=== PATIENT | female | born 1975 | race Caucasian/White ===

== ENCOUNTER 2018-12-27 06:07 | Day surgery (SDC) | payer MEDICAID ==
[2018-12-24 14:08] LABS: BASOPHILS % (AUTO) 0.4 % (0-1); EOSINOPHILS # (AUTO) 0.1 X10'3 (0-0.9); EOSINOPHILS % (AUTO) 1.4 % (0-6); HEMATOCRIT 41.6 % (35.0-45.0); HEMOGLOBIN 14.2 g/dl (12.0-16.0); LYMPHOCYTES # (AUTO) 1.6 X10'3 (1.1-4.8); LYMPHOCYTES % (AUTO) 23.4 % (21-51); MEAN CORPUSCULAR HGB CONC 34.2 g/dL (33.0-36.5); MEAN CORPUSCULAR VOLUME 84.9 FL (78-98); MONOCYTES # (AUTO) 0.4 X10'3 (0-0.9); MONOCYTES % (AUTO) 6.3 % (2-12); NEUTROPHILS # (AUTO) 4.7 X10'3 (1.8-7.7); NEUTROPHILS % (AUTO) 68.5 % (42-75); PLATELET COUNT 305 X10'3 (140-440); RED CELL DISTRIBUTION WIDTH 12.6 % (11.5-14.5); WHITE BLOOD COUNT 6.8 X10'3 (4.5-11.0)
[2018-12-24 14:20] LABS: ALANINE AMINOTRANSFERASE 30 U/L (12-78); ALBUMIN 3.6 G/DL (3.4-5.0); ALBUMIN/GLOBULIN RATIO 0.9 (1.1-1.5); ALKALINE PHOSPHATASE 47 IU/L (46-116); ANION GAP 6 (8-16); ASPARTATE AMINO TRANSFERASE 19 U/L (10-37); BILIRUBIN,TOTAL 0.3 MG/DL (0.1-1.0); BLOOD UREA NITROGEN 10 MG/DL (7-18); BUN/CREATININE RATIO 14.3 (6.6-38.0); CALCIUM 8.7 MG/DL (8.5-10.1); CHLORIDE 106 MMOL/L (99-107); GLUCOSE 98 MG/DL (70-104); POTASSIUM 4.1 MMOL/L (3.5-5.1); SODIUM 138 MMOL/L (135-145); TOTAL CARBON DIOXIDE 25.9 MMOL/L (24-32); TOTAL PROTEIN 7.4 G/DL (6.4-8.2); eGFR > 90 ML/MIN
[2018-12-24 15:13] LABS: HCG SERUM QL NEGATIVE
[~2018-12-27] VITALS: Ht 170.2 cm; Wt 97.4 kg
[~2018-12-27 06:07] MED LIST: NO HOME MEDS; ceFAZolin 2gm in dextrose, iso 100 ML IV ONE; famotidine 20mg tablet PO ONE; ringers solution, lacted 1,000 ML IV SCH
[2018-12-27] MEDS ORDERED: LIDOcaine 0.5% (5mg/ml) 50ml vial ONE (07:05)
[2018-12-27] MEDS ORDERED: ringers solution, lacted 1,000 ML IV SCH (07:09)
[2018-12-27] MEDS ORDERED: labetalol 20mg/4ml (5mg/ml) syringe IV PRN (07:10)
[2018-12-27] MEDS ORDERED: hydrALAZINE 20mg/ml inj. IV PRN (07:10)
[2018-12-27] MEDS ORDERED: fentaNYL/PF 50MCG/1 ML 2ML syringe IV PRN ×2 (07:10)
[2018-12-27] MEDS ORDERED: morphine 4 MG/ML inj SYRINge IV PRN ×2 (07:10)
[2018-12-27] MEDS ORDERED: ondansetron/PF 4mg/2ml inj IV PRN (07:10)
[2018-12-27] MEDS ORDERED: LIDOcaine 1% (10mg/ml) 2ml vial ONE (07:13)
[2018-12-27] MEDS ORDERED: BUPIVAcaine/PF 2.5mg/ml (0.25%) 10ml vial IJ ONE (07:44)
[2018-12-27] MEDS ORDERED: MIDAZolam 1mg/ml 10ml vial ONE (08:28)
[2018-12-27] MEDS ORDERED: fentaNYL/PF 50MCG/1 ML 2ML syringe ONE (08:28)
[2018-12-27] MEDS ORDERED: BUPIVAcaine/PF 2.5mg/ml (0.25%) 10ml vial ONE (08:33)
[2018-12-27] MEDS ORDERED: propofol inj 20 ML IV ONE (09:03)
[2018-12-27] MEDS ORDERED: LIDOcaine 2% (20mg/ml) 5ml vial ONE (09:03)
[2018-12-27 09:13] VITALS: BP 136/72
[2018-12-27 09:14] VITALS: BP 115/77
--- NOTE | 2018-12-27 09:14 | NUR ---
Received from OR via MUNIR , accompanied by Anesthesiologist CLARKE and report given by Anesthesiolgist. PATIENT WITH 20G PIV IN RIGHT UE RUNNING LR AT 100. DENIES PAIN. LEFT WRIST DRESSING IS CDI.+ CSM. Addendum: 12/27/18 at 0924 by Kin Tran RN, RN Amended: Links added.
[2018-12-27 09:15] VITALS: BP 136/72
[2018-12-27 09:24] VITALS: BP 127/72
[2018-12-27 09:34] VITALS: BP 115/76
[2018-12-27 09:44] VITALS: BP 117/78
--- NOTE | 2018-12-27 09:59 | NUR ---
ALL DC CRITERIA HAS BEEN MET. IV TAKEN OUT WITHOUT COMPLICATIONS. ALL INSTRUCTIONS COVERED AND ALL QUESTIONS ANSWERED. DRESSINGS CDI. OUT VIA WHEELCHAIR TO PERSONAL VEHICLE WHERE PATIENT WAS SECURED IN AND DRIVEN HOME BY FAMILY. ICE, DC INSTRUCTIONS AND ALL QUESTIONS ANSWERED. OUT WITH VOLUNTEER TO VEHICLE. Addendum: 12/27/18 at 1000 by Kin Tran RN, RN Amended: Links added.
== END 2018-12-27 09:54 | disposition home or self-care (01) ==
LOC: PAS 06:07
PROVIDERS: ATTEND Orthopaedic Surgery Hand Surgery
DX: G56.03 Carpal tunnel syndrome, bilateral upper limbs (principal); M65.332 Trigger finger, left middle finger; M65.342 Trigger finger, left ring finger; F41.9 Anxiety disorder, unspecified; J45.909 Unspecified asthma, uncomplicated; F12.90 Cannabis use, unspecified, uncomplicated; Z72.89 Other problems related to lifestyle; Z90.49 Acquired absence of other specified parts of digestive tract; Z79.899 Other long term (current) drug therapy; Z98.890 Other specified postprocedural states; Z87.891 Personal history of nicotine dependence
CPT/HCPCS: 26055; 29848; 36415; 80053; 82948; 84703; 85025; A6449; J0690; J2001; J2250; J2704; J3010; J3490; J7120

== ENCOUNTER 2020-04-02 07:42 | Day surgery (SDC) | payer MEDICAID ==
[2020-03-29 16:09] LABS: ALBUMIN 3.6 G/DL (3.4-5.0); ALKALINE PHOSPHATASE 47 IU/L (46-116); BLOOD UREA NITROGEN 9 MG/DL (7-18); CALCIUM 8.8 MG/DL (8.5-10.1); CHLORIDE 108 MMOL/L (99-107); PRE OP ALT 36 U/L (30-65); PRE OP ANION GAP 9 (8-16); PRE OP AST 22 U/L (10-37); PRE OP BILIRUB, TOTAL 0.3 MG/DL (0.0-1.0); PRE OP GLUCOSE 87 MG/DL (70-104); PRE OP POTASSIUM 4.1 MMOL/L (3.4-5.1); PRE OP SODIUM 143 MMOL/L (135-145); TOTAL CARBON DIOXIDE 25.7 MMOL/L (24-32); TOTAL PROTEIN 7.2 G/DL (6.4-8.2); eGFR 68 ML/MIN
[2020-03-29 16:18] LABS: BASOPHILS % (AUTO) 0.5 % (0-1); EOSINOPHILS % (AUTO) 0.5 % (0-6); LYMPHOCYTES # (AUTO) 2.1 X10'3 (1.1-4.8); LYMPHOCYTES % (AUTO) 31.4 % (21-51); MEAN CORPUSCULAR HEMOGLOBIN 29.4 PG (27.0-31.0); MEAN CORPUSCULAR HGB CONC 33.5 g/dL (33.0-36.5); MEAN CORPUSCULAR VOLUME 87.7 FL (78-98); MEAN PLATELET VOLUME 8.2 FL (7.4-10.4); MONOCYTES # (AUTO) 0.6 X10'3 (0-0.9); MONOCYTES % (AUTO) 9.6 % (2-12); NEUTROPHILS # (AUTO) 3.9 X10'3 (1.8-7.7); PRE OP HEMATOCRIT 40.2 % (35.0-45.0); PRE OP HEMOGLOBIN 13.5 g/dL (12.0-16.0); PRE OP PLATELET COUNT 285 X10'3 (140-440); RED BLOOD COUNT 4.58 X10'6 (4.20-5.60); RED CELL DISTRIBUTION WIDTH 13.1 % (11.5-14.5)
[~2020-04-02] VITALS: Ht 170.2 cm; Wt 95.3 kg
[2020-04-02] VITALS (10 sets, daily range): BP systolic 109–119; BP diastolic 63–74
[~2020-04-02 07:42] MED LIST changes: +BUPIVAcaine/PF 2.5 mg/ml (0.25%) 30ml vial ONE; +LIDOcaine 1% 30ml preserv. free vial ONE; +albuterol 2.5 MG/3 ML nebule NEB ONE; -ceFAZolin 2gm in dextrose, iso 100 ML IV ONE; +cefazolin/dext.iso 2gm/50ml 50 ML IV ONE; +meperidine/PF 25mg/ml syringe IV PRN; +morphine 2 MG/ML inj. syringe IV PRN; +morphine 4 MG/ML inj SYRINge IV PRN; +ondansetron/PF 4mg/2ml inj IV PRN; +proCHLORperazine 10 MG/2 ml inj IV PRN
[2020-04-02] MEDS ORDERED: fentaNYL/PF 50MCG/1 ML 2ML syringe ONE ×3 (10:07→11:00)
[2020-04-02] MEDS ORDERED: MIDAZolam 5mg/5ml vial ONE (10:07)
[2020-04-02] MEDS ORDERED: BUPIVAcaine/PF 2.5 mg/ml (0.25%) 30ml vial ONE (10:51)
[2020-04-02] MEDS ORDERED: midazolam 2 mg/2 ml injection ONE ×4 (10:58→11:40)
[2020-04-02] MEDS ORDERED: propofol inj 20 ML IV ONE ×2 (11:57→12:12)
[2020-04-02] MEDS ORDERED: meperidine/PF 25mg/ml syringe ONE (12:03)
--- NOTE | 2020-04-02 12:04 | NUR ---
Received from OR via MUN[facility], accompanied by Anesthesiologist DR WHEELER and report given by Anesthesiologist. PT DROWSY, RIGHT HAND/TUMB/WRIST IN SPLINT W/BREANNA WRAP COVERING W/SMALL AMT OF BLOODY DRAINAGE TO THUMB. Addendum: 04/02/20 at 1222 by Amy Vieyra RN Amended: Links added.
[2020-04-02] MEDS ORDERED: LIDOcaine 2% (20mg/ml) 5ml vial ONE (12:12)
[2020-04-02] MEDS ORDERED: ketorolac trometh. 30mg/ml inj. ONE (12:12)
--- NOTE | 2020-04-02 13:44 | NUR ---
PT UP AND ABLE TO AMBULATE, VOIDED, D/C INSTRUCTIONS GIVEN AND GONE OVER W/PT WHO VERBALIZED UNDERSTANDING, PT D/CD TO HOME VIA W/C TO PRIVATE VEHICLE W/O INCIDENT. Addendum: 04/02/20 at 1404 by Amy Vieyra RN Amended: Links added.
== END 2020-04-02 13:44 | disposition home or self-care (01) ==
LOC: PAS 07:42
PROVIDERS: ATTEND Orthopaedic Surgery Hand Surgery
DX: M25.341 Other instability, right hand (principal); J45.909 Unspecified asthma, uncomplicated; E66.9 Obesity, unspecified; Z68.34 Body mass index [BMI] 34.0-34.9, adult; Z98.890 Other specified postprocedural states; Z90.49 Acquired absence of other specified parts of digestive tract; Z72.89 Other problems related to lifestyle; Z87.891 Personal history of nicotine dependence; Z79.899 Other long term (current) drug therapy; Z11.59 Encounter for screening for other viral diseases
CPT/HCPCS: 26541; 36415; 80053; 82948; 85025; C1713; J2001; J2175; J2250; J2704; J3010; J3490; J7120; U0003; A4215; A4618; A7000; J1885

== ENCOUNTER 2021-03-12 10:23 | Emergency (ER) | payer MEDICAID ==
[~2021-03-12] VITALS: Ht 170.2 cm; Wt 86.4 kg
[~2021-03-12 10:23] MED LIST changes: -BUPIVAcaine/PF 2.5 mg/ml (0.25%) 30ml vial ONE; -LIDOcaine 1% 30ml preserv. free vial ONE; -albuterol 2.5 MG/3 ML nebule NEB ONE; -cefazolin/dext.iso 2gm/50ml 50 ML IV ONE; -famotidine 20mg tablet PO ONE; -meperidine/PF 25mg/ml syringe IV PRN; -morphine 2 MG/ML inj. syringe IV PRN; -morphine 4 MG/ML inj SYRINge IV PRN; -ondansetron/PF 4mg/2ml inj IV PRN; -proCHLORperazine 10 MG/2 ml inj IV PRN; -ringers solution, lacted 1,000 ML IV SCH
[2021-03-12 10:36] VITALS: BP 129/85
== END 2021-03-12 12:57 | disposition home or self-care (01) ==
LOC: ER 10:24
DX: U07.1 COVID-19 (principal); E78.00 Pure hypercholesterolemia, unspecified; G89.29 Other chronic pain; F41.9 Anxiety disorder, unspecified; F32.9 Major depressive disorder, single episode, unspecified; Z90.49 Acquired absence of other specified parts of digestive tract; Z90.89 Acquired absence of other organs; Z72.89 Other problems related to lifestyle
CPT/HCPCS: 87635; 99283; C9803